=== PATIENT | female | born 1950 | race Caucasian/White ===

== ENCOUNTER 2019-05-13 14:37 | Inpatient (IN) ==
[2019-05-13] MEDS ORDERED: Dextrose Gel 15 GM/37.5 ML TUBE PO PRN ×2 (17:35)
[2019-05-13] MEDS ORDERED: Ondansetron 4 MG/2 ML VIAL IVP PRN (17:35)
[2019-05-13] MEDS ORDERED: *HR* OxyCODONE Immed Rel 5 MG TABLET PO PRN (17:35)
[2019-05-13] MEDS ORDERED: D5% in Water 1,000 ML IVC PRN (17:35)
[2019-05-13] MEDS ORDERED: *HR* Dextrose 50 % in Water (Syg) 50 ML SYRINGE IVP PRN (17:35)
[2019-05-13] MEDS ORDERED: Naloxone 0.4 MG/ML INJ IVP PRN (17:35)
[2019-05-13] MEDS ORDERED: *HR* HYDROcodone/Acet 5/325 mg TABLET PO PRN (17:35)
[2019-05-13] MEDS ORDERED: Acetaminophen 325 MG TABLET PO PRN (17:35)
[2019-05-13] MEDS ORDERED: Azithromycin 500 MG in 0.9 % Sodium Chloride 250 ML IVPB ONE (18:07)
[2019-05-13] MEDS ORDERED: Ipratropium Neb 0.5 MG NEBULIZER IH PRN (18:08)
[2019-05-13] MEDS ORDERED: *HR* FentaNYL (PF) 100 MCG/2 ML VIAL ONE (19:23)
[2019-05-13] MEDS ORDERED: *HR* Propofol 200 MG/20 ML VIAL IVP ONE (19:23)
[2019-05-13] MEDS ORDERED: Ondansetron 4 MG/2 ML VIAL ONE (19:23)
[2019-05-13] MEDS ORDERED: Lidocaine -MPF 2% 2 ML VIAL ONE (19:23)
[2019-05-13] MEDS ORDERED: Dexamethasone 4 MG/ML VIAL ONE ×2 (19:23→21:11)
[2019-05-13] MEDS: Ipratropium/Albuterol Neb 3 ML IH SCH ×2 (19:50→23:41)
[2019-05-13] MEDS ORDERED: Budesonide Neb 0.5 MG/2 ML IH SCH (20:00)
[2019-05-13] MEDS ORDERED: *HR* HYDROmorphone PF 0.5 MG/0.5 ML SYRINGE IVP PRN (20:14)
[2019-05-13] MEDS ORDERED: Lithium Carbonate ER 450 MG TABLET.ER PO SCH (21:00)
[2019-05-13] MEDS ORDERED: Latanoprost 2.5 ML BOTTLE BOTH EYES SCH (21:00)
[2019-05-13] MEDS ORDERED: QUEtiapine Fumarate 100 MG TABLET PO SCH (21:00)
[2019-05-13] MEDS ORDERED: Insulin LISPRO 300 UNITS/3 ML VIAL SQ SCH (21:00)
[2019-05-14] MEDS ORDERED: D5% in Water 1,000 ML IVC PRN (01:27)
[2019-05-14] MEDS ORDERED: *HR* Dextrose 50 % in Water (Syg) 50 ML SYRINGE IVP PRN (01:27)
[2019-05-14] MEDS ORDERED: Acetaminophen 325 MG TABLET PO PRN (01:27)
[2019-05-14] MEDS ORDERED: Dextrose Gel 15 GM/37.5 ML TUBE PO PRN ×2 (01:27)
[2019-05-14] MEDS ORDERED: Naloxone 0.4 MG/ML INJ IVP PRN (01:27)
[2019-05-14] MEDS ORDERED: Ipratropium Neb 0.5 MG NEBULIZER IH PRN (01:27)
[2019-05-14] MEDS ORDERED: Ondansetron 4 MG/2 ML VIAL IVP PRN (01:27)
[2019-05-14] MEDS: ceFAZolin 2,000 MG in 0.9 % Sodium Chloride 100 ML IVPB SCH ×3 (02:15→18:29)
[2019-05-14] MEDS: Ipratropium/Albuterol Neb 3 ML IH SCH ×6 (04:05→23:40)
[2019-05-14 04:44] LABS: Adenovirus Not Detected (Not Detect); Bordetella Pertussis Not Detected (Not Detect); Chlamydophila pneumoniae Not Detected (Not Detect); Coronavirus 229E Not Detected (Not Detect); Coronavirus HKU1 Not Detected (Not Detect); Coronavirus NL63 Not Detected (Not Detect); Coronavirus OC43 Not Detected (Not Detect); Human Metapneumovirus Not Detected (Not Detect); Human Rhinovirus/Enterovirus Not Detected (Not Detect); Influenza A Equivocal (Not Detect); Influenza A Subtype 2009 H1 Not Detected (Not Detect); Influenza B Not Detected (Not Detect); Mycoplasma pneumoniae Not Detected (Not Detect); Parainfluenza Virus 1 Not Detected (Not Detect); Parainfluenza Virus 2 Not Detected (Not Detect); Parainfluenza Virus 3 Not Detected (Not Detect); Parainfluenza Virus 4 Not Detected (Not Detect); Respiratory Syncytial Virus Not Detected (Not Detect)
[2019-05-14 05:54] LABS: INR 1.1; Prothrombin Time 12.6 Seconds (9.4-12.1)
[2019-05-14 05:56] LABS: Basophils % 0.1 %; Hematocrit 31.5 % (35.3-44.9); Hemoglobin 9.7 g/dL (11.5-15.4); Immature Granulocytes % 0.7 % (0-4); Lymphocytes # 0.7 K/mcL (0.6-4.6); Lymphocytes % 4.3 %; Mean Corpuscular HGB Conc 30.8 g/dL (31.6-35.5); Mean Corpuscular Hemoglobin 29.8 pg (28.0-33.3); Mean Corpuscular Volume 96.6 fL (83.0-100.0); Mean Platelet Volume 8.8 fL (9.4-12.4); Neutrophils # 14.2 K/mcL (1.6-8.9); Platelet Count 182 K/mcL (140-400); Red Blood Count 3.26 M/mcL (3.82-4.97); Segmented Neutrophils % 88.9 %
[2019-05-14 06:10] LABS: BUN/Creatinine Ratio 30 (6-26); Blood Urea Nitrogen 29 mg/dL (8-23); Calcium 7.9 mg/dL (8.6-10.3); Carbon Dioxide 28 mEq/L (23-29); Chloride 107 mEq/L (98-107); Glucose 265 mg/dL (70-105); Magnesium 1.7 mg/dL (1.6-2.6); Osmolality,Calculated 303 (280-300); Potassium 4.6 mEq/L (3.5-5.1); Sodium 139 mEq/L (136-145); eGFR For African Americans > 60 (> 60); eGFR For Non-African Americans 58 (> 60)
[2019-05-14] MEDS ORDERED: Insulin LISPRO 300 UNITS/3 ML VIAL SQ SCH (07:30)
[2019-05-14] MEDS: Insulin LISPRO 300 UNITS/3 ML VIAL SQ SCH ×4 (08:07→20:45)
[2019-05-14 09:57] LABS: Adenovirus Not Detected (Not Detect); Coronavirus 229E Not Detected (Not Detect); Coronavirus HKU1 Not Detected (Not Detect); Coronavirus NL63 Not Detected (Not Detect); Coronavirus OC43 Not Detected (Not Detect); Human Metapneumovirus Not Detected (Not Detect)
[2019-05-14 09:58] LABS: Bordetella Pertussis Not Detected (Not Detect); Chlamydophila pneumoniae Not Detected (Not Detect); Human Rhinovirus/Enterovirus Not Detected (Not Detect); Influenza A Subtype 2009 H1 Not Detected (Not Detect); Influenza B Not Detected (Not Detect); Mycoplasma pneumoniae Not Detected (Not Detect); Parainfluenza Virus 1 Not Detected (Not Detect); Parainfluenza Virus 2 Not Detected (Not Detect); Parainfluenza Virus 3 Not Detected (Not Detect); Parainfluenza Virus 4 Not Detected (Not Detect); Respiratory Syncytial Virus Not Detected (Not Detect)
[2019-05-14] MEDS: Budesonide Neb 0.5 MG/2 ML IH SCH ×2 (11:37→19:58)
[2019-05-14] MEDS: *HR* HYDROcodone/Acet 5/325 mg TABLET PO PRN (14:48)
[2019-05-14] MEDS: Piperacillin/Tazobactam 3.375 GM in 0.9 % Sodium Chloride Mini Bag 100 ML IVPB SCH ×2 (16:49→23:48)
[2019-05-14] MEDS: *HR* Enoxaparin 30 MG/0.3 ML SYRINGE SQ SCH (16:57)
[2019-05-14 20:29] LABS: Hematocrit 29.3 % (35.3-44.9); Hemoglobin 9.2 g/dL (11.5-15.4)
[2019-05-14] MEDS: *HR* OxyCODONE Immed Rel 5 MG TABLET PO PRN (20:44)
[2019-05-14] MEDS: QUEtiapine Fumarate 100 MG TABLET PO SCH (20:44)
[2019-05-14] MEDS: Lithium Carbonate ER 450 MG TABLET.ER PO SCH (20:44)
[2019-05-14] MEDS: Latanoprost 2.5 ML BOTTLE BOTH EYES SCH (20:59)
[2019-05-15] MEDS: Ipratropium/Albuterol Neb 3 ML IH SCH ×4 (03:58→15:25)
[2019-05-15 05:04] LABS: Basophils % 0.1 %; Eosinophils % 0.1 %; Hematocrit 27.9 % (35.3-44.9); Hemoglobin 8.6 g/dL (11.5-15.4); Immature Granulocytes % 0.7 % (0-4); Lymphocytes # 1.3 K/mcL (0.6-4.6); Lymphocytes % 10.3 %; Mean Corpuscular HGB Conc 30.8 g/dL (31.6-35.5); Mean Corpuscular Hemoglobin 29.5 pg (28.0-33.3); Mean Corpuscular Volume 95.5 fL (83.0-100.0); Mean Platelet Volume 9.5 fL (9.4-12.4); Monocytes # 1.1 K/mcL (0.0-1.3); Monocytes % 8.5 %; Neutrophils # 9.9 K/mcL (1.6-8.9); Platelet Count 168 K/mcL (140-400); Red Blood Count 2.92 M/mcL (3.82-4.97); Red Cell Distribution Width 13.1 % (11.5-14.5); Segmented Neutrophils % 80.3 %; White Blood Count 12.3 K/mcL (4.3-11.1)
[2019-05-15] MEDS: *HR* Enoxaparin 30 MG/0.3 ML SYRINGE SQ SCH (05:20)
[2019-05-15 05:32] LABS: BUN/Creatinine Ratio 29 (6-26); Blood Urea Nitrogen 30 mg/dL (8-23); Calcium 7.5 mg/dL (8.6-10.3); Carbon Dioxide 24 mEq/L (23-29); Chloride 102 mEq/L (98-107); Glucose 215 mg/dL (70-105); Magnesium 1.8 mg/dL (1.6-2.6); Osmolality,Calculated 295 (280-300); Potassium 4.3 mEq/L (3.5-5.1); Sodium 136 mEq/L (136-145); eGFR For African Americans > 60 (> 60); eGFR For Non-African Americans 52 (> 60)
[2019-05-15] MEDS: Piperacillin/Tazobactam 3.375 GM in 0.9 % Sodium Chloride Mini Bag 100 ML IVPB SCH (07:32)
[2019-05-15] MEDS: Insulin LISPRO 300 UNITS/3 ML VIAL SQ SCH ×4 (07:36→21:16)
[2019-05-15] MEDS: *HR* OxyCODONE Immed Rel 5 MG TABLET PO PRN ×2 (07:52→14:37)
[2019-05-15] MEDS: Budesonide Neb 0.5 MG/2 ML IH SCH ×2 (07:55→21:58)
[2019-05-15] MEDS ORDERED: cefTRIAXone 1,000 MG in 0.9 % Sodium Chloride Mini Bag 100 ML IVPB SCH (09:00)
[2019-05-15] MEDS ORDERED: Insulin DETEMIR 100 UNIT/ML X5UNITS SQ ONE (11:23)
[2019-05-15] MEDS ORDERED: MOM Conc 10 ML UD.LIQ PO PRN (14:33)
[2019-05-15] MEDS: QUEtiapine Fumarate 100 MG TABLET PO SCH (21:15)
[2019-05-15] MEDS: Lithium Carbonate ER 450 MG TABLET.ER PO SCH (21:15)
[2019-05-15] MEDS: Latanoprost 2.5 ML BOTTLE BOTH EYES SCH (21:16)
[2019-05-15] MEDS: *HR* HYDROcodone/Acet 5/325 mg TABLET PO PRN (21:16)
[2019-05-15] MEDS: Insulin DETEMIR 100 UNIT/ML X5UNITS SQ SCH (21:16)
[2019-05-15] MEDS: Levalbuterol Neb 0.63 MG/3 ML IH SCH (21:57)
[2019-05-16] MEDS: *HR* OxyCODONE Immed Rel 5 MG TABLET PO PRN ×2 (03:26→11:37)
[2019-05-16] MEDS: Levalbuterol Neb 0.63 MG/3 ML IH SCH ×4 (04:10→21:31)
[2019-05-16 06:37] LABS: Basophils % 0.2 %; Eosinophils % 0.4 %; Hematocrit 24.4 % (35.3-44.9); Hemoglobin 7.6 g/dL (11.5-15.4); Immature Granulocytes % 0.6 % (0-4); Lymphocytes # 1.1 K/mcL (0.6-4.6); Lymphocytes % 11.2 %; Mean Corpuscular HGB Conc 31.1 g/dL (31.6-35.5); Mean Corpuscular Hemoglobin 29.5 pg (28.0-33.3); Mean Corpuscular Volume 94.6 fL (83.0-100.0); Mean Platelet Volume 9.3 fL (9.4-12.4); Monocytes # 0.9 K/mcL (0.0-1.3); Monocytes % 9.2 %; Neutrophils # 7.8 K/mcL (1.6-8.9); Platelet Count 186 K/mcL (140-400); Red Blood Count 2.58 M/mcL (3.82-4.97); Red Cell Distribution Width 13.1 % (11.5-14.5); Segmented Neutrophils % 78.4 %; White Blood Count 9.9 K/mcL (4.3-11.1)
[2019-05-16 06:56] LABS: BUN/Creatinine Ratio 28 (6-26); Blood Urea Nitrogen 23 mg/dL (8-23); Calcium 7.6 mg/dL (8.6-10.3); Carbon Dioxide 30 mEq/L (23-29); Chloride 103 mEq/L (98-107); Glucose 137 mg/dL (70-105); Osmolality,Calculated 292 (280-300); Sodium 138 mEq/L (136-145); eGFR For African Americans > 60 (> 60); eGFR For Non-African Americans > 60 (> 60)
[2019-05-16] MEDS: cefTRIAXone 1,000 MG in Water for inj. (sterile) 10 ML IVP SCH (08:47)
[2019-05-16] MEDS: Insulin DETEMIR 100 UNIT/ML X5UNITS SQ SCH ×2 (08:48→21:50)
[2019-05-16] MEDS: Insulin LISPRO 300 UNITS/3 ML VIAL SQ SCH ×4 (08:48→21:51)
[2019-05-16] MEDS: Budesonide Neb 0.5 MG/2 ML IH SCH ×2 (09:56→21:31)
[2019-05-16] MEDS ORDERED: 0.9 % Sodium Chloride 500 ML ONE (10:56)
[2019-05-16] MEDS: *HR* HYDROcodone/Acet 5/325 mg TABLET PO PRN (15:43)
[2019-05-16] MEDS ORDERED: ceFAZolin 2,000 MG in Water for inj. (sterile) 20 ML IVP ONE (20:30)
[2019-05-16] MEDS: QUEtiapine Fumarate 100 MG TABLET PO SCH (21:50)
[2019-05-16] MEDS: Lithium Carbonate ER 450 MG TABLET.ER PO SCH (21:50)
[2019-05-16] MEDS: Latanoprost 2.5 ML BOTTLE BOTH EYES SCH (21:51)
[2019-05-17] MEDS: Levalbuterol Neb 0.63 MG/3 ML IH SCH ×4 (03:16→22:21)
[2019-05-17 04:58] LABS: Basophils % 0.1 %; Eosinophils # 0.1 K/mcL (0.0-0.6); Eosinophils % 0.9 %; Hematocrit 24.9 % (35.3-44.9); Hemoglobin 8.1 g/dL (11.5-15.4); Immature Granulocytes % 0.7 % (0-4); Lymphocytes # 0.9 K/mcL (0.6-4.6); Lymphocytes % 11.4 %; Mean Corpuscular HGB Conc 32.5 g/dL (31.6-35.5); Mean Corpuscular Hemoglobin 30.8 pg (28.0-33.3); Mean Corpuscular Volume 94.7 fL (83.0-100.0); Monocytes # 0.7 K/mcL (0.0-1.3); Monocytes % 8.6 %; Platelet Count 182 K/mcL (140-400); Red Blood Count 2.63 M/mcL (3.82-4.97); Red Cell Distribution Width 13.3 % (11.5-14.5); Segmented Neutrophils % 78.3 %; White Blood Count 7.7 K/mcL (4.3-11.1)
[2019-05-17] MEDS: *HR* OxyCODONE Immed Rel 5 MG TABLET PO PRN (08:53)
[2019-05-17] MEDS: cefTRIAXone 1,000 MG in Water for inj. (sterile) 10 ML IVP SCH (08:54)
[2019-05-17] MEDS: Bisacodyl 10 MG RECTAL SUPPOSITORY RC PRN (08:57)
[2019-05-17] MEDS: Insulin LISPRO 300 UNITS/3 ML VIAL SQ SCH ×4 (08:58→20:03)
[2019-05-17] MEDS: Insulin DETEMIR 100 UNIT/ML X5UNITS SQ SCH ×2 (08:59→19:57)
[2019-05-17] MEDS ORDERED: Milk and Molasses Enema 200 ML RC ONE (09:14)
[2019-05-17] MEDS: Budesonide Neb 0.5 MG/2 ML IH SCH ×2 (09:51→22:21)
[2019-05-17] MEDS: Lithium Carbonate ER 450 MG TABLET.ER PO SCH (19:56)
[2019-05-17] MEDS: QUEtiapine Fumarate 100 MG TABLET PO SCH (19:56)
[2019-05-17] MEDS: Latanoprost 2.5 ML BOTTLE BOTH EYES SCH (19:57)
[2019-05-18] MEDS: Levalbuterol Neb 0.63 MG/3 ML IH SCH ×4 (03:34→22:37)
[2019-05-18] MEDS ORDERED: Water for inj. (sterile) 20 ML VIAL IV ONE (09:50)
[2019-05-18] MEDS ORDERED: Levalbuterol Neb 0.63 MG/3 ML ONE ×2 (09:50→15:20)
[2019-05-18] MEDS ORDERED: Budesonide Neb 0.5 MG/2 ML IH ONE (09:50)
[2019-05-18] MEDS ORDERED: CefTRIAXone 1,000 MG VIAL ONE (09:50)
[2019-05-18] MEDS ORDERED: *HR* OxyCODONE Immed Rel 5 MG TABLET ONE (09:50)
[2019-05-18 14:25] LABS: Basophils % 0.1 %; Eosinophils # 0.1 K/mcL (0.0-0.6); Eosinophils % 1.1 %; Hematocrit 27.2 % (35.3-44.9); Hemoglobin 8.3 g/dL (11.5-15.4); Lymphocytes # 0.8 K/mcL (0.6-4.6); Lymphocytes % 9.7 %; Mean Corpuscular HGB Conc 30.5 g/dL (31.6-35.5); Mean Corpuscular Hemoglobin 29.3 pg (28.0-33.3); Mean Corpuscular Volume 96.1 fL (83.0-100.0); Mean Platelet Volume 9.1 fL (9.4-12.4); Monocytes # 0.7 K/mcL (0.0-1.3); Monocytes % 8.5 %; Neutrophils # 6.6 K/mcL (1.6-8.9); Platelet Count 247 K/mcL (140-400); Red Blood Count 2.83 M/mcL (3.82-4.97); Red Cell Distribution Width 13.4 % (11.5-14.5); Segmented Neutrophils % 79.6 %; White Blood Count 8.2 K/mcL (4.3-11.1)
[2019-05-18] MEDS: Budesonide Neb 0.5 MG/2 ML IH SCH ×2 (15:54→22:37)
[2019-05-18] MEDS: Insulin LISPRO 300 UNITS/3 ML VIAL SQ SCH ×4 (17:11→23:21)
[2019-05-18] MEDS: Insulin DETEMIR 100 UNIT/ML X5UNITS SQ SCH (17:12)
[2019-05-18] MEDS: cefTRIAXone 1,000 MG in Water for inj. (sterile) 10 ML IVP SCH (17:12)
[2019-05-18] MEDS: *HR* OxyCODONE Immed Rel 5 MG TABLET PO PRN (17:13)
[2019-05-18] MEDS: Bisacodyl 10 MG RECTAL SUPPOSITORY RC PRN (18:38)
[2019-05-18] MEDS: Lithium Carbonate ER 450 MG TABLET.ER PO SCH (23:07)
[2019-05-18] MEDS: QUEtiapine Fumarate 100 MG TABLET PO SCH (23:08)
[2019-05-18] MEDS: Latanoprost 2.5 ML BOTTLE BOTH EYES SCH (23:09)
[2019-05-19] MEDS: Insulin DETEMIR 100 UNIT/ML X5UNITS SQ SCH ×2 (00:08→09:01)
[2019-05-19 01:55] LABS: BUN/Creatinine Ratio 33 (6-26); Blood Urea Nitrogen 21 mg/dL (8-23); Calcium 7.8 mg/dL (8.6-10.3); Carbon Dioxide 32 mEq/L (23-29); Chloride 103 mEq/L (98-107); Glucose 158 mg/dL (70-105); Osmolality,Calculated 294 (280-300); Potassium 4.3 mEq/L (3.5-5.1); Sodium 139 mEq/L (136-145); eGFR For African Americans > 60 (> 60); eGFR For Non-African Americans > 60 (> 60)
[2019-05-19] MEDS: Levalbuterol Neb 0.63 MG/3 ML IH SCH (04:16)
[2019-05-19 05:52] LABS: Hematocrit 26.4 % (35.3-44.9); Hematocrit 27.7 % (35.3-44.9); Hemoglobin 8.5 g/dL (11.5-15.4); Hemoglobin 8.7 g/dL (11.5-15.4); Mean Corpuscular HGB Conc 31.4 g/dL (31.6-35.5); Mean Corpuscular Hemoglobin 29.5 pg (28.0-33.3); Mean Corpuscular Volume 93.9 fL (83.0-100.0); Platelet Count 253 K/mcL (140-400); Red Blood Count 2.95 M/mcL (3.82-4.97); Red Cell Distribution Width 13.2 % (11.5-14.5); White Blood Count 7.9 K/mcL (4.3-11.1)
[2019-05-19 06:10] LABS: BUN/Creatinine Ratio 32 (6-26); Blood Urea Nitrogen 20 mg/dL (8-23); Calcium 7.9 mg/dL (8.6-10.3); Carbon Dioxide 31 mEq/L (23-29); Chloride 103 mEq/L (98-107); Glucose 125 mg/dL (70-105); Osmolality,Calculated 292 (280-300); Potassium 4.1 mEq/L (3.5-5.1); Sodium 139 mEq/L (136-145); eGFR For African Americans > 60 (> 60); eGFR For Non-African Americans > 60 (> 60)
[2019-05-19 08:35] VITALS: BP 103/61
[2019-05-19] MEDS: cefTRIAXone 1,000 MG in Water for inj. (sterile) 10 ML IVP SCH (09:01)
[2019-05-19] MEDS: Insulin LISPRO 300 UNITS/3 ML VIAL SQ SCH (09:02)
[2019-05-19] MEDS: *HR* HYDROcodone/Acet 5/325 mg TABLET PO PRN (09:06)
== END 2019-05-19 10:46 | DRG 308 ==
LOC: 3NENU → SUATTDRO 15:57
PROVIDERS: ADMIT Internal Medicine; ATTEND Internal Medicine

== ENCOUNTER 2019-08-10 17:22 | Inpatient (IN) ==
[~2019-08-10 17:22] MED LIST: cefTRIAXone 1,000 MG in 0.9 % Sodium Chloride Mini Bag 100 ML IVPB SCH
[2019-08-10] MEDS ORDERED: Isovue-370 500 ML BOTTLE IVP ONE (17:40)
[2019-08-10 18:09] LABS: Bilirubin,Urine Small (Negative); Blood,Urine Negative (Negative); Clarity,Urine Turbid (Clear); Color,Urine Yellow (Yellow); Glucose,Urine (UA) 500 mg/dL (Normal); Ketones,Urine Negative (Negative); Leukocyte Esterase,Urine Moderate (Negative); Nitrite,Urine Positive (Negative); PH,Urine 5.5 pH Units (5.0-8.0); Protein,Urine Trace mg/dL (Neg-Trace); Specific Gravity,Urine 1.028 (1.010-1.025); Urobilinogen,Urine Normal (Normal)
[2019-08-10 18:12] LABS: Bacteria,Urine Many per hpf (None-Few); Squamous Epithelial Cell,Urine Many per lpf (None-Few); WBC,Urine TNTC per hpf (0-3)
[2019-08-10 18:21] LABS: RBC,Urine 0-3 per hpf (0-3)
[2019-08-10 18:22] LABS: Hyaline Casts,Urine None Seen per lpf (None-Few); Mucus,Urine Few per lpf (None-Few)
[2019-08-10] MEDS ORDERED: cefTRIAXone 1,000 MG in 0.9 % Sodium Chloride Mini Bag 100 ML IVPB ONE (18:31)
[2019-08-10 18:39] LABS: Basophils % 0.1 %; Eosinophils % 0.2 %; Hemoglobin 10.8 g/dL (11.5-15.4); Immature Granulocytes % 0.8 % (0-4); Mean Corpuscular HGB Conc 30.9 g/dL (31.6-35.5); Mean Corpuscular Hemoglobin 27.6 pg (28.0-33.3); Mean Corpuscular Volume 89.3 fL (83.0-100.0); Mean Platelet Volume 9.8 fL (9.4-12.4); Monocytes # 1.3 K/mcL (0.0-1.3); Monocytes % 9.3 %; Neutrophils # 11.3 K/mcL (1.6-8.9); Platelet Count 230 K/mcL (140-400); Red Blood Count 3.92 M/mcL (3.82-4.97); Red Cell Distribution Width 15.8 % (11.5-14.5); Segmented Neutrophils % 82.6 %; White Blood Count 13.7 K/mcL (4.3-11.1)
[2019-08-10 18:53] LABS: Alanine Aminotransferase 9 Units/L (7-52); Albumin 3.3 g/dL (3.5-5.7); Albumin/Globulin Ratio 1.4 (1.1-2.2); Alkaline Phosphatase 112 Units/L (34-104); Aspartate Amino Transferase 7 Units/L (13-39); BUN/Creatinine Ratio 54 (6-26); Bilirubin,Direct 0.1 mg/dL (0.0-0.2); Bilirubin,Indirect 0.2 mg/dL (0.0-1.0); Bilirubin,Total 0.3 mg/dL (0.3-1.0); Blood Urea Nitrogen 43 mg/dL (8-23); Calcium 8.3 mg/dL (8.6-10.3); Carbon Dioxide 27 mEq/L (23-29); Chloride 100 mEq/L (98-107); Globulin 2.4 g/dL (2.4-3.5); Glucose 273 mg/dL (70-105); Osmolality,Calculated 301 (280-300); Potassium 4.2 mEq/L (3.5-5.1); Sodium 135 mEq/L (136-145); Total Protein 5.7 g/dL (6.4-8.9); Troponin I < 0.03 ng/mL (< 0.04); eGFR For African Americans > 60 (> 60); eGFR For Non-African Americans > 60 (> 60)
[2019-08-10] MEDS ORDERED: 0.9 % Sodium Chloride 1,000 ML IVC ONE (21:22)
[2019-08-10] MEDS ORDERED: 0.9 % Sodium Chloride 1,000 ML ONE (21:23)
[2019-08-10] MEDS ORDERED: Ondansetron 4 MG/2 ML VIAL IVP PRN (23:05)
[2019-08-10] MEDS ORDERED: Naloxone 0.4 MG/ML INJ IVP PRN (23:05)
[2019-08-10] MEDS ORDERED: *HR* Dextrose 50 % in Water (Syg) 50 ML SYRINGE IVP PRN (23:09)
[2019-08-10] MEDS ORDERED: D5% in Water 1,000 ML IVC PRN (23:09)
[2019-08-10] MEDS ORDERED: Dextrose Gel 15 GM/37.5 ML TUBE PO PRN ×2 (23:09)
[2019-08-10] MEDS ORDERED: 0.9 % Sodium Chloride 1,000 ML IVC SCH (23:15)
[2019-08-11] MEDS: Ketorolac 15 MG/ML VIAL IVP PRN ×3 (00:41→18:54)
[2019-08-11] MEDS: Insulin LISPRO 300 UNITS/3 ML VIAL SQ SCH ×4 (00:42→17:12)
[2019-08-11] MEDS: Insulin DETEMIR 100 UNIT/ML X5UNITS SQ SCH ×2 (00:45→20:01)
[2019-08-11 01:56] LABS: Basophils % 0.1 %; Eosinophils % 0.3 %; Hematocrit 30.9 % (35.3-44.9); Hemoglobin 9.7 g/dL (11.5-15.4); Immature Granulocytes % 0.6 % (0-4); Lymphocytes # 1.1 K/mcL (0.6-4.6); Lymphocytes % 8.9 %; Mean Corpuscular HGB Conc 31.4 g/dL (31.6-35.5); Mean Corpuscular Hemoglobin 27.9 pg (28.0-33.3); Mean Corpuscular Volume 88.8 fL (83.0-100.0); Mean Platelet Volume 9.9 fL (9.4-12.4); Monocytes # 1.2 K/mcL (0.0-1.3); Monocytes % 9.3 %; Platelet Count 216 K/mcL (140-400); Red Blood Count 3.48 M/mcL (3.82-4.97); Red Cell Distribution Width 15.9 % (11.5-14.5); Segmented Neutrophils % 80.8 %; White Blood Count 12.4 K/mcL (4.3-11.1)
[2019-08-11 02:03] LABS: Prothrombin Time 11.9 Seconds (9.4-12.1)
[2019-08-11 02:19] LABS: Alanine Aminotransferase 8 Units/L (7-52); Albumin/Globulin Ratio 1.2 (1.1-2.2); Alkaline Phosphatase 108 Units/L (34-104); Aspartate Amino Transferase 9 Units/L (13-39); BUN/Creatinine Ratio 59 (6-26); Bilirubin,Total 0.4 mg/dL (0.3-1.0); Blood Urea Nitrogen 34 mg/dL (8-23); Carbon Dioxide 28 mEq/L (23-29); Chloride 103 mEq/L (98-107); Globulin 2.6 g/dL (2.4-3.5); Glucose 198 mg/dL (70-105); Osmolality,Calculated 299 (280-300); Potassium 4.3 mEq/L (3.5-5.1); Sodium 138 mEq/L (136-145); Total Protein 5.6 g/dL (6.4-8.9); eGFR For African Americans > 60 (> 60); eGFR For Non-African Americans > 60 (> 60)
[2019-08-11] MEDS: Ipratropium/Albuterol Neb 3 ML IH SCH ×4 (06:03→22:05)
[2019-08-11] MEDS ORDERED: *HR* Dextrose 50 % in Water (Syg) 50 ML SYRINGE IVP PRN (09:15)
[2019-08-11] MEDS ORDERED: D5% in Water 1,000 ML IVC PRN (09:15)
[2019-08-11] MEDS ORDERED: Dextrose Gel 15 GM/37.5 ML TUBE PO PRN ×2 (09:15)
[2019-08-11] MEDS: lisinopriL 5 MG TABLET PO SCH (10:02)
[2019-08-11] MEDS: OLANZapine 5 MG TAB.RAPDIS PO SCH ×2 (10:02→20:01)
[2019-08-11] MEDS: Ascorbic Acid 500 MG TABLET PO SCH (10:02)
[2019-08-11] MEDS: FLUTICASONE FUROATE 100 MCG IH SCH (10:14)
[2019-08-11] MEDS: NUEDEXTA PO SCH ×2 (10:14→21:00)
[2019-08-11] MEDS: Rivastigmine Tartrate (oral) 1.5 MG CAPSULE PO SCH ×2 (11:40→20:01)
[2019-08-11] MEDS ORDERED: *HR* HYDROcodone/Acet 5/325 mg TABLET PO PRN (11:41)
[2019-08-11] MEDS ORDERED: cefTRIAXone 1,000 MG in Water for inj. (sterile) 10 ML IVP SCH (18:00)
[2019-08-11] MEDS ORDERED: Latanoprost 2.5 ML BOTTLE BOTH EYES SCH (19:00)
[2019-08-11] MEDS ORDERED: 0.9 % Sodium Chloride 1,000 ML IVC SCH (19:30)
[2019-08-11] MEDS: *HR* LORazepam 0.5 MG TABLET PO SCH (20:01)
[2019-08-11 20:05] LABS: Calcium 7.7 mg/dL (8.6-10.3); Potassium 4.5 mEq/L (3.5-5.1)
[2019-08-11] MEDS ORDERED: Insulin LISPRO 300 UNITS/3 ML VIAL SQ SCH (21:00)
[2019-08-12] MEDS ORDERED: 0.9 % Sodium Chloride 500 ML IVC ONE (00:40)
[2019-08-12 03:11] LABS: Basophils % 0.1 %; Eosinophils # 0.1 K/mcL (0.0-0.6); Eosinophils % 1.3 %; Hemoglobin 8.6 g/dL (11.5-15.4); Immature Granulocytes % 0.7 % (0-4); Lymphocytes % 13.6 %; Mean Corpuscular HGB Conc 30.7 g/dL (31.6-35.5); Mean Corpuscular Hemoglobin 27.6 pg (28.0-33.3); Mean Corpuscular Volume 89.7 fL (83.0-100.0); Mean Platelet Volume 9.7 fL (9.4-12.4); Monocytes # 0.5 K/mcL (0.0-1.3); Monocytes % 6.9 %; Neutrophils # 5.9 K/mcL (1.6-8.9); Platelet Count 212 K/mcL (140-400); Red Blood Count 3.12 M/mcL (3.82-4.97); Red Cell Distribution Width 15.9 % (11.5-14.5); Segmented Neutrophils % 77.4 %; White Blood Count 7.6 K/mcL (4.3-11.1)
[2019-08-12 03:31] LABS: BUN/Creatinine Ratio 39 (6-26); Blood Urea Nitrogen 33 mg/dL (8-23); Calcium 7.7 mg/dL (8.6-10.3); Carbon Dioxide 25 mEq/L (23-29); Chloride 105 mEq/L (98-107); Glucose 240 mg/dL (70-105); Osmolality,Calculated 297 (280-300); Potassium 4.2 mEq/L (3.5-5.1); Sodium 136 mEq/L (136-145); eGFR For African Americans > 60 (> 60); eGFR For Non-African Americans > 60 (> 60)
[2019-08-12] MEDS: Ipratropium/Albuterol Neb 3 ML IH SCH ×2 (03:43→11:03)
[2019-08-12 07:16] VITALS: BP 115/70
[2019-08-12] MEDS: Insulin LISPRO 300 UNITS/3 ML VIAL SQ SCH ×2 (09:05→12:51)
[2019-08-12] MEDS: Rivastigmine Tartrate (oral) 1.5 MG CAPSULE PO SCH (09:05)
[2019-08-12] MEDS: Ascorbic Acid 500 MG TABLET PO SCH (09:06)
[2019-08-12] MEDS: NUEDEXTA PO SCH (09:06)
[2019-08-12] MEDS: OLANZapine 5 MG TAB.RAPDIS PO SCH (09:06)
[2019-08-12] MEDS: lisinopriL 5 MG TABLET PO SCH (09:06)
[2019-08-12] MEDS: *HR* LORazepam 0.5 MG TABLET PO SCH (09:06)
[2019-08-12] MEDS: FLUTICASONE FUROATE 100 MCG IH SCH (11:05)
== END 2019-08-12 15:20 | disposition short-term general hospital (02) | DRG 720 ==
LOC: EMEROOARM 17:22 → 3NENU 17:22 → SUATTDRO 21:16 → 3NENU 22:17
PROVIDERS: ADMIT Student in an Organized Health Care Education/Training Program; ATTEND Family Medicine

== ENCOUNTER 2020-03-31 11:39 | Inpatient (IN) ==
[2020-03-31] MEDS ORDERED: Ondansetron 4 MG/2 ML VIAL IVP PRN (14:08)
[2020-03-31] MEDS ORDERED: Naloxone 0.4 MG/ML INJ IVP PRN (14:08)
[2020-03-31] MEDS ORDERED: *HR* HYDROcodone/Acet 5/325 mg TABLET PO PRN (14:08)
[2020-03-31] MEDS ORDERED: Dextrose Gel 15 GM/37.5 ML TUBE PO PRN ×2 (14:10)
[2020-03-31] MEDS ORDERED: D5% in Water 1,000 ML IVC PRN (14:10)
[2020-03-31] MEDS ORDERED: *HR* Dextrose 50 % in Water (Vial) 50 ML VIAL IVP PRN (14:10)
[2020-03-31] MEDS ORDERED: GuaiFENesin/Dextromethorphan TABLET PO PRN (14:11)
[2020-03-31] MEDS ORDERED: 0.9 % Sodium Chloride 250 ML ONE (15:51)
[2020-03-31] MEDS ORDERED: 0.9 % Sodium Chloride 250 ML IVC ONE (15:54)
[2020-03-31 16:00] LABS: Amorphous Sediment,Urine Few per hpf (None-Few); Bacteria,Urine Few per hpf (None-Few); Bilirubin,Urine Negative (Negative); Blood,Urine Negative (Negative); Clarity,Urine Ex.Turbid (Clear); Color,Urine Yellow (Yellow); Glucose,Urine (UA) Normal (Normal); Ketones,Urine Negative (Negative); Leukocyte Esterase,Urine Negative (Negative); Mucus,Urine Few per lpf (None-Few); Nitrite,Urine Negative (Negative); PH,Urine 5.5 pH Units (5.0-8.0); Protein,Urine 50 mg/dL (Neg-Trace); RBC,Urine 0-3 per hpf (0-3); Specific Gravity,Urine 1.021 (1.010-1.025); Squamous Epithelial Cell,Urine Few per hpf (None-Few); Urobilinogen,Urine Normal (Normal)
[2020-03-31] MEDS: Insulin LISPRO 300 UNITS/3 ML VIAL SUBQ SCH ×2 (16:38→21:44)
[2020-03-31] MEDS ORDERED: Remdesivir 200 MG in 0.9 % Sodium Chloride 100 ML IVPB ONE (17:00)
[2020-03-31] MEDS: Nystatin POWDER 30 GM BOTTLE TP SCH (21:42)
[2020-03-31] MEDS: *HR* Enoxaparin 80 MG/0.8 ML SYRINGE SQ SCH (21:44)
[2020-03-31] MEDS: Insulin DETEMIR 100 UNIT/ML X5UNITS SUBQ SCH (21:44)
[2020-03-31] MEDS ORDERED: *HR* Metoprolol 5 MG/5 ML VIAL IVP ONE (22:11)
[2020-04-01 02:23] LABS: Basophils % 0.2 %; Hematocrit 39.3 % (35.3-44.9); Hemoglobin 11.8 g/dL (11.5-15.4); Immature Granulocytes % 0.6 % (0-4); Lymphocytes # 0.7 K/mcL (0.6-4.6); Lymphocytes % 13.1 %; Mean Corpuscular Volume 93.1 fL (83.0-100.0); Mean Platelet Volume 9.3 fL (9.4-12.4); Monocytes # 0.3 K/mcL (0.0-1.3); Monocytes % 4.6 %; Neutrophils # 4.4 K/mcL (1.6-8.9); Platelet Count 208 K/mcL (140-400); Red Blood Count 4.22 M/mcL (3.82-4.97); Red Cell Distribution Width 15.1 % (11.5-14.5); Segmented Neutrophils % 81.5 %; White Blood Count 5.4 K/mcL (4.3-11.1)
[2020-04-01 02:34] LABS: Activated Partial Thrombo Time 37.9 Seconds (26.0-36.0); Prothrombin Time 12.1 Seconds (9.4-12.1)
[2020-04-01 02:45] LABS: Albumin 3.2 g/dL (3.5-5.7); Albumin/Globulin Ratio 1.2 (1.1-2.2); Bilirubin,Total 0.2 mg/dL (0.3-1.0); Calcium 8.5 mg/dL (8.6-10.3); Globulin 2.7 g/dL (2.4-3.5); Magnesium 1.9 mg/dL (1.6-2.6); Phosphorous 5.1 mg/dL (2.7-4.5); Potassium 4.6 mEq/L (3.5-5.1); Total Protein 5.9 g/dL (6.4-8.9)
[2020-04-01] MEDS: *HR* Enoxaparin 80 MG/0.8 ML SYRINGE SQ SCH ×2 (06:41→17:47)
[2020-04-01] MEDS ORDERED: 0.9 % Sodium Chloride 1,000 ML IV ONE (07:26)
[2020-04-01] MEDS: cefTRIAXone 1,000 MG in Water for inj. (sterile) 10 ML IVP SCH (08:32)
[2020-04-01] MEDS: Pantoprazole 40 MG VIAL IVP SCH (08:32)
[2020-04-01] MEDS: Dexamethasone Sodium Phos/PF 10 MG/ML VIAL IVP SCH (08:34)
[2020-04-01] MEDS: Loratadine 10 MG TABLET PO SCH (08:44)
[2020-04-01] MEDS: clonazePAM 0.5 MG TABLET PO SCH ×2 (08:44→19:52)
[2020-04-01] MEDS: Ascorbic Acid 500 MG TABLET PO SCH (08:44)
[2020-04-01] MEDS: OLANZapine 5 MG TAB.RAPDIS PO SCH ×2 (08:44→19:52)
[2020-04-01] MEDS ORDERED: Azithromycin 500 MG in 0.9 % Sodium Chloride 250 ML IVPB SCH (09:00)
[2020-04-01] MEDS: Nystatin POWDER 30 GM BOTTLE TP SCH ×3 (09:12→19:52)
[2020-04-01] MEDS: Ipratropium 1 PUFF INHALER IH SCH ×4 (11:03→23:35)
[2020-04-01] MEDS: Insulin LISPRO 300 UNITS/3 ML VIAL SUBQ SCH ×2 (11:32→17:46)
[2020-04-01] MEDS ORDERED: Furosemide 40 MG/4 ML VIAL IVP ONE ×2 (12:10→14:00)
[2020-04-01] MEDS ORDERED: Remdesivir 100 MG in 0.9 % Sodium Chloride 100 ML IVPB SCH (17:00)
[2020-04-01] MEDS: Doxycycline 100 MG in 0.9 % Sodium Chloride Mini Bag 100 ML IVPB SCH (17:46)
[2020-04-01] MEDS: Insulin DETEMIR 100 UNIT/ML X5UNITS SUBQ SCH (19:54)
[2020-04-01] MEDS ORDERED: Latanoprost 2.5 ML BOTTLE BOTH EYES SCH (21:00)
[2020-04-02] MEDS ORDERED: Ondansetron 4 MG/2 ML VIAL IVP PRN (03:48)
[2020-04-02] MEDS ORDERED: Atropine 1% Opth Drops 100 DROP/5 ML BOTTLE SL PRN (03:48)
[2020-04-02] MEDS ORDERED: Morphine Sulfate 2 MG/ML SYRINGE IVP PRN (03:48)
[2020-04-02] MEDS: Ipratropium 1 PUFF INHALER IH SCH (03:59)
[2020-04-02] MEDS ORDERED: Scopolamine Patch 1.5 MG PATCH.TD72 TD SCH (04:00)
[2020-04-02] MEDS ORDERED: *HR* LORazepam 1 MG TABLET PO PRN (04:00)
[2020-04-02] MEDS: Doxycycline 100 MG in 0.9 % Sodium Chloride Mini Bag 100 ML IVPB SCH (04:17)
[2020-04-02] MEDS: *HR* Enoxaparin 80 MG/0.8 ML SYRINGE SQ SCH (04:17)
[2020-04-02] MEDS ORDERED: Ipratropium 1 PUFF INHALER IH PRN (04:25)
[2020-04-02 09:09] VITALS: BP 72/58
[2020-04-02] MEDS: *HR* FentaNYL (PF) 100 MCG/2 ML VIAL IVP PRN ×3 (14:47→23:15)
[2020-04-02] MEDS: *HR* LORazepam 2 MG/ML VIAL IVP PRN ×3 (15:34→23:14)
[2020-04-02] MEDS: Insulin LISPRO 300 UNITS/3 ML VIAL SUBQ SCH (19:36)
[2020-04-02] MEDS: Dexamethasone Sodium Phos/PF 10 MG/ML VIAL IVP SCH (19:37)
[2020-04-02] MEDS: Loratadine 10 MG TABLET PO SCH (19:37)
[2020-04-02] MEDS: Pantoprazole 40 MG VIAL IVP SCH (19:38)
[2020-04-02] MEDS: clonazePAM 0.5 MG TABLET PO SCH (19:38)
[2020-04-02] MEDS: Nystatin POWDER 30 GM BOTTLE TP SCH (19:38)
[2020-04-02] MEDS: cefTRIAXone 1,000 MG in Water for inj. (sterile) 10 ML IVP SCH (19:38)
[2020-04-02] MEDS: Ascorbic Acid 500 MG TABLET PO SCH (19:39)
[2020-04-02] MEDS: OLANZapine 5 MG TAB.RAPDIS PO SCH (19:39)
[2020-04-02] MEDS: Haloperidol Lactate 5 MG/ML VIAL IVP PRN ×2 (19:53→23:14)
[2020-04-03] MEDS: *HR* LORazepam 2 MG/ML VIAL IVP PRN ×5 (02:20→23:28)
[2020-04-03] MEDS: Haloperidol Lactate 5 MG/ML VIAL IVP PRN (02:20)
[2020-04-03] MEDS: *HR* FentaNYL (PF) 100 MCG/2 ML VIAL IVP PRN ×6 (02:21→21:05)
[2020-04-03] MEDS ORDERED: *HR* LORazepam Oral Conc 2 MG/ML SL PRN (15:40)
[2020-04-03] MEDS ORDERED: Haloperidol Oral Conc 10 MG/5 ML UDC PO PRN (15:42)
[2020-04-04] MEDS: *HR* LORazepam 2 MG/ML VIAL IVP PRN ×3 (01:53→15:59)
[2020-04-04] MEDS: *HR* FentaNYL (PF) 100 MCG/2 ML VIAL IVP PRN ×5 (01:53→13:20)
[2020-04-06] MEDS ORDERED: Dexamethasone Sodium Phos/PF 10 MG/ML VIAL IVP SCH (09:00)
== END 2020-04-04 17:15 | disposition expired | DRG 720 ==
LOC: 2NENU → SUATTDRO 13:43 → 2NENU 04-01 11:05
PROVIDERS: ADMIT Internal Medicine; ATTEND Pharmacist